=== PATIENT | male | born 1965 | race Caucasian/White ===

== ENCOUNTER → 2024-03-31 | Outpatient (CLI) | payer OTHER ==
[~2024-03-31] MED LIST: ASPIRIN81 M1 PO; BENADRYL ALLERG25 M1 PO; NORVASC5 MG PO; PRILOSEC20 MG PO
[2024-04-01 05:06] LABS: HBSAG Negative (Negative); HEP B CORE AB, IGM Negative (Negative); HEPATITIS C ANTIBODY Non Reactive (Non Reactive)
== END | disposition home or self-care (01) ==
LOC: LAB 01:37
PROVIDERS: Student in an Organized Health Care Education/Training Program; ATTEND Family Medicine
DX: R79.89 Other specified abnormal findings of blood chemistry (principal)

== ENCOUNTER → 2024-04-06 | Outpatient (CLI) | payer OTHER | END | disposition home or self-care (01) | LOC: US 01:24 | PROVIDERS: ATTEND Family Medicine | DX: R79.89 Other specified abnormal findings of blood chemistry (principal) ==

== ENCOUNTER → 2025-03-21 | Outpatient (CLI) | payer OTHER | END | disposition home or self-care (01) | LOC: US 08:37 | PROVIDERS: ATTEND Family Medicine | DX: R16.1 Splenomegaly, not elsewhere classified (principal); R10.9 Unspecified abdominal pain ==